=== PATIENT | female | born 1965 | race Two or more races ===

== ENCOUNTER 2022-11-26 02:10 | Emergency (ER) | payer OTHER ==
[2022-11-26] MEDS ORDERED: IV NORMAL SALINE 500 ML BAG IV ONE (04:30)
[2022-11-26] MEDS ORDERED: hydrALAZINE HCL 20 MG/1 ML VIAL IV ONE (04:30)
[2022-11-26] MEDS ORDERED: hydrALAZINE HCL 20 MG/1 ML VIAL ONE (04:49)
[2022-11-26 05:24] LABS: CREATININE 0.7 mg/dL (0.6-1.3); POTASSIUM 3.2 mmol/L (3.5-5.1)
[2022-11-26 05:30] LABS: BILIRUBIN,TOTAL 0.4 mg/dL (0.2-1.0); TOTAL PROTEIN, SERUM 7.2 g/dL (6.4-8.2)
[2022-11-26 05:31] LABS: HEMATOCRIT 43.7 % (31.2-41.9); MEAN CORPUSCULAR HEMOGLOBIN 29.5 uug (24.7-32.8); MEAN CORPUSCULAR VOLUME 86.7 fL (75.5-95.3); PLATELET COUNT (AUTO) 346 K/uL (179-408)
[2022-11-26] MEDS ORDERED: METOCLOPRAMIDE HCL 10 MG/2 ML VIAL ONE (05:55)
[2022-11-26] MEDS ORDERED: METOCLOPRAMIDE HCL 10 MG/2 ML VIAL IV ONE (06:00)
[2022-11-26] MEDS ORDERED: ACETAMINOPHEN 325 MG TABLET PO ONE (06:15)
[2022-11-26] MEDS ORDERED: LISI10TA29 PO (06:33)
[2022-11-26] MEDS ORDERED: METO25TA6 PO (06:35)
[2022-11-26] MEDS ORDERED: ACETAMINOPHEN 325 MG TABLET ONE (07:08)
--- NOTE | 2022-11-26 07:15 | NUR ---
Received patient resting in bed, easily arousable. No complaints during this time. AO x 4. Safety precautions in place. Will continue to monitor.
--- NOTE | 2022-11-26 09:00 | NUR ---
Patient discharged to home in stable condition. Written and verbal after care instructions given. Patient verbalizes understanding of instructions. Stressed follow up or return to ER for worsening s/s.
[2022-11-26 09:01] VITALS: BP 139/95
== END 2022-11-26 09:00 | disposition home or self-care (01) ==
LOC: ER 02:22
DX: I10 Essential (primary) hypertension (principal); R51.9 Headache, unspecified; Z90.710 Acquired absence of both cervix and uterus; R74.8 Abnormal levels of other serum enzymes
CPT/HCPCS: 99285; 96374; 70450; 71045; 96361; 96375; 80053; 83880; 83690; 85025; 84484; 36415; 93005; J0360; J2765; A4663